=== PATIENT | female | born 1960 | race American Indian/Alaskan Native ===

== ENCOUNTER 2020-07-11 09:56 | Outpatient (CLI) | payer OTHER ==
--- NOTE | 2020-07-11 12:11 | XRay Report ---
BILATERAL FEET 2 VIEWS EACH INDICATION / CLINICAL INFORMATION: PAIN IN LEFT FOOT, CARPAL TUNNED, TINGLE AND NUMBNESS COMPARISON: None available. FINDINGS: BONES / JOINT(S): No acute fracture or subluxation. No significant arthritis. Mild underlying osteope rigoberto bilaterally. SOFT TISSUES: No significant abnormality. ADDITIONAL FINDINGS: None. Signer Name: Osorio Lindsey MD Signed: 07/11/2020 12:07 PM Workstation Name: [id number]
--- NOTE | 2020-07-11 12:13 | XRay Report ---
BILATERAL HANDS 2 VIEWS EACH INDICATION / CLINICAL INFORMATION: CARPAL TUNNEL, TINGLE AND NUMBNESS COMPARISON: None available. FINDINGS: BONES / JOINT(S): No acute fracture or subluxation. Mild DJD greatest at the first carpometacarpal vinicio ints. SOFT TISSUES: No significant abnormality. ADDITIONAL FINDINGS: None. Signer Name: Osorio Lindsey MD Signed: 07/11/2020 12:09 PM Workstation Name: [id number]
== END 2020-07-11 09:57 | disposition home or self-care (01) ==
LOC: XRAY 09:56
PROVIDERS: ATTEND Internal Medicine
DX: M85.872 Other specified disorders of bone density and structure, left ankle and foot (principal); M85.871 Other specified disorders of bone density and structure, right ankle and foot; M18.0 Bilateral primary osteoarthritis of first carpometacarpal joints; G56.03 Carpal tunnel syndrome, bilateral upper limbs; R20.0 Anesthesia of skin; R20.2 Paresthesia of skin